=== PATIENT | male | born 1985 | race Caucasian/White ===

== ENCOUNTER 2017-09-02 14:37 | Emergency (ER) | payer MEDICAID ==
[2017-09-02 15:00] VITALS: BP 129/96; PULSE 93; RESP 14; TEMP 98.2; O2SAT 95
--- NOTE | 2017-09-02 15:04 | EDPHY ---
H & P Time Seen by Provider: 09/02/17 14:52 HPI/ROS: CHIEF COMPLAINT: Right great toenail avulsion HISTORY OF PRESENT ILLNESS: Stubbed it wearing socks at home yesterday with right great toenail avulsion at bleeding. Pain with movement of the toenail. REVIEW OF SYSTEMS: No other injuries PAST MEDICAL HISTORY: History of DVT on chronic anticoagulation General Appearance: Alert and conversant, cooperative. No toe bony tenderness. Nail intact. It is been avulsed all the way down to the base but is still attached at the eponychial fold and at the base. No subungual hematoma and no active bleeding. Normal motor and no surrounding redness warmth or lymphangitis. Normal sensation to light touch. Emergency Department course/MDM: Discussed care for avulsed nail that is still attached in the eponychial fold. I would not choose to remove it now since the base still requires protection for the new ingrowing nail. Band-Aid applied and nail care discussed. He is warned that he will take several weeks to months for resolution. Patient states understanding and agreement. Smoking Status: Never smoked Constitutional: Initial Vital Signs Temperature (C) 36.8 C 09/02/17 14:54 Heart Rate 93 09/02/17 14:54 Respiratory Rate 14 09/02/17 14:54 Blood Pressure 129/96 H 09/02/17 14:54 O2 Sat (%) 95 09/02/17 14:54 O2 Delivery Mode Room Air Allergies/Adverse Reactions: No Known Allergies Allergy (Verified 09/02/17 14:51) Home Medications: Medication Instructions Recorded Colchicine 0.6 mg PO BID #30 capsule 11/28/15 Allopurinol 09/02/17 Xarelto 09/02/17 MDM/Departure - Depart Disposition: Home, Routine, Self-Care Clinical Impression: right great toenail avulsion Condition: Good Instructions: Nail Avulsion (ED) Referrals: [facility] [Other] - As per Instructions
== END 2017-09-02 15:01 | disposition home or self-care (01) ==
LOC: CED 14:37
DX: S91.101A Unspecified open wound of right great toe without damage to nail, initial encounter (principal); Z79.01 Long term (current) use of anticoagulants; W22.8XXA Striking against or struck by other objects, initial encounter; Y92.009 Unspecified place in unspecified non-institutional (private) residence as the place of occurrence of the external cause